=== PATIENT | female | born 1950 | race Caucasian/White ===

== ENCOUNTER 2016-08-29 11:29 | Observation (INO) | payer BC ==
--- NOTE | ~2016-08-29 | DS ---
Discharge Summary [id number] [place]. [address] NAME: DWAYNE MARIN : 54 STATUS : DIS Kwame PAT#: [id number] AGE: 66 ADM/REG DATE : 08/29/16 MR#: [id number] REPORT SERV DATE: 08/31/16 DICTATED BY: LALITHA ADAMS DATE: 08/30/16 REPORT STATUS : Draft TRANSCRIBED BY: MODL DATE: 08/30/16 ADMISSION DATE: 08/29/2016 DISCHARGE DATE: 08/30/2016 PRINCIPAL DIAGNOSIS: Chest pain due to anxiety state with major depression. SECONDARY DIAGNOSES: Urinary tract infection, type 2 diabetes. HISTORY OF PRESENT ILLNESS: Please see Dr. Solorzano's dictation on 08/29/2016. HOSPITAL COURSE: The patient was admitted with chest pain and shortness of breath. The patient had a negative CTA, negative stress test, negative liver ultrasound for mildly elevated LFTs, attributable probably to the fatty liver. The patient continued to have chest pain and shortness of breath. However, she was found to be very anxious, found to have history of major depression with depressed affect. She had been prescribed Cymbalta 30 b.i.d., but she was not taking that b.i.d. once if at all. She was instructed to go ahead and take this b.i.d. Francisca was given p.r.n. with instructions to stay off work for the next two weeks, as it sounds like job-related stress was causing her a great deal of difficulty. She was directed to follow up with [facility] and with psychiatrist that she actually already had an appointment with. DICTATED BY: Reny Montiel/JOSE Lalitha Adams M.D. / [id number] CC: Lalitha Adams M.D. [facility]
--- NOTE | ~2016-08-29 | HP ---
History And Physical [id number] [facility] [place]. [address] NAME: DWAYNE MARIN : 54 STATUS : ADM Kwame PAT#: [id number] AGE: 66 ADM/REG DATE : 08/29/16 MR#: [id number] REPORT SERV DATE: 08/29/16 DICTATED BY: MARGARITA SOLORZANO DATE: 08/29/16 REPORT STATUS : Draft TRANSCRIBED BY: JOSE DATE: 08/29/16 DATE OF ADMISSION: 08/29/2016 CHIEF COMPLAINT: Chest pain, dyspnea on exertion, subjective fevers and chills for a few days. HISTORY OF PRESENT ILLNESS: This is a very pleasant 66-year-old female. She has a history of diabetes type 2, uncontrolled, on oral medication. She has a history of vertigo, history of depression with anxiety and migraine headaches, presenting today to [facility] with complaints started a few days ago with some chest pain, but mostly generalized pain as well as severe weakness and dyspnea on exertion. The patient's symptoms did not improve. She still experienced this pressure-like chest pain, but also sometimes stabbing pain that has been radiating to the left side and sometimes jaw pains unrelated with the chest pain and severe weakness. She said she was so weak that she lay most of the time in the bed. She did not have any PND or orthopnea. She has not had any palpitation. She has not had any abdominal pain. She has not had any nausea or vomiting. No hematemesis, melena, or hematochezia. No recent sick contacts. No recent hospitalization. Due to the persistence of the symptoms, she has been presenting today to [facility] Emergency Room. After initial evaluation, Hospitalist Service has been asked for admission, further evaluation, and treatment. PAST MEDICAL HISTORY: Significant for diabetes type 2, noninsulin dependent; migraine headaches; history of depression and anxiety; history of GERD with hiatal hernia. PAST SURGICAL HISTORY: Includes cholecystectomy as well as hysterectomy. SOCIAL HISTORY: She denies tobacco, alcohol, or IV drugs. She does not have any drug allergies. MEDICATIONS: At home include Excedrin, Cymbalta, Amaryl, Atarax, and Antivert. FAMILY HISTORY: Significant for heart disease, diabetes, and cancer. REVIEW OF SYSTEMS: A 14-point review of systems has been obtained and pertinent positive has been listed into the history of present illness. Otherwise, negative except those underlying above. PHYSICAL EXAMINATION: VITAL SIGNS: The patient currently is afebrile. Blood pressure 155/85, heart rate 90, respiratory rate 18, saturating 90% on room air. GENERAL: She is a very pleasant, somewhat anxious female, in nonacute distress. She is alert and oriented x3. She is nonfocal. She follows all her commands appropriately. HEENT: Show pupils equal, round, reactive to light. Extraocular movements intact. No JVD. No lymphadenopathy. No thyromegaly appreciated. CHEST: Eval shows bilateral air entry. Clear anteroposterior. No wheezes, crackles, or rhonchi appreciated. History And Physical [address] [address] NAME: DWAYNE MARIN : 54 STATUS : ADM Kwame PAT#: [id number] AGE: 66 ADM/REG DATE : 08/29/16 MR#: [id number] REPORT SERV DATE: 08/29/16 DICTATED BY: MARGARITA SOLORZANO DATE: 08/29/16 REPORT STATUS : Draft TRANSCRIBED BY: JOSE DATE: 08/29/16 CARDIOVASCULAR: She has regular rate and rhythm. S1, S2 positive. No S3, no S4. No murmurs, rubs, or gallops appreciated. ABDOMEN: Soft with positive bowel sounds. Nontender. No guarding. No rebound. EXTREMITIES: No clubbing, cyanosis, or edema. NEUROLOGIC: The patient is alert and oriented x3. She is nonfocal. She follows all her commands appropriately. LABORATORY DATA: Labs from today include sodium 135, potassium 3.8, chloride 108, CO2 of 26, BUN 10, creatinine 0.77, glucose 142. Her total bilirubin is 0.5, alkaline phosphatase 88, ALT 73, AST 71. Troponin is less than 0.02. Her lactate is 1.1. Her white count is 4.7, hemoglobin 12.8 hematocrit 40.0, platelets 242. Her INR is 1.2. Her UA has been positive for large leukocyte esterase, 9 cells, and rare bacteria. Her blood cultures currently are pending. Her urine cultures are pending. There is EKG which shows normal sinus rhythm, and on chest x-ray, portable, performed in the emergency room showed that the patient has a large hiatal hernia. No acute process, otherwise identified radiographically. ASSESSMENT AND PLAN: This is a very pleasant 66-year-old female with: 1. Chest pain and dyspnea on exertion. 2. Urinary tract infection. 3. Diabetes type 2, noninsulin dependent, uncontrolled. 4. History of gastroesophageal reflux disease and hiatal hernia. 5. Depression and anxiety. The patient is going to be admitted for observation. We are going to place her on oxygen, aspirin, low doses of beta karli, rule her for myocardial infarction by serial cardiac enzymes, serial EKG, perform CTA of the chest, as well as 2D echo, stress test in the morning. Provide supportive treatment as well. 6. Urinary tract infection. Check urine cultures, blood cultures. Place the patient on Rocephin and IV hydration. 7. Hypertension. Start the patient on beta blockers as well as provide p.r.n. hydralazine as needed. 8. Diabetes type 2, noninsulin dependent. Continue her home medication. Accu-Cheks before meals and at bedtime and sliding scale insulin subcutaneously level 2. 9. History of gastroesophageal reflux disease with hiatal hernia. Place her on Protonix oral. 10.Mild elevation in liver function tests. We are going to check a liver ultrasound as well as a hepatitis panel and follow the labs in the morning. 11.History of depression with anxiety. We will continue her home medications. We are going to provide reasonable pain and nausea control as well as gastrointestinal and deep venous thrombosis prophylaxis. That has been discussed extensively with the patient. All the questions have been answered in full. Further workup and recommendation pending above. It is worthwhile to note that the patient is going to be followed up by Hospitalist Service. History And Physical [address] [address] NAME: DWAYNE MARIN : 54 STATUS : ADM Kwame PAT#: [id number] AGE: 66 ADM/REG DATE : 08/29/16 MR#: [id number] REPORT SERV DATE: 08/29/16 DICTATED BY: MARGARITA SOLORZANO DATE: 08/29/16 REPORT STATUS : Draft TRANSCRIBED BY: JOSE DATE: 08/29/16 CF/JOSE Margarita Solorzaon M.D. / [id number] CC: Margarita Solorzano M.D.
[~2016-08-29 11:29] MED LIST: ASA5GR PO; ATV.5 PO; DSS PO; EXCEDRIN EXTRA1 EACH PO; EXCEDRIN MIGRA1 EAC1 PO; EXCEDRIN TENSI1 EACH PO; GLUCOTROL5 PO; GLUCPH PO; GOLD BOND EX; ZANTAC150 MG PO; ZESTRIL10 MG PO
[2016-08-29 12:49] LABS: BASOPHILS 0.4 %; BASOPHILS ABSOLUTE 0.02 10/3/uL (0.0-0.16); EOSINOPHILS 1.3 %; EOSINOPHILS ABSOLUTE 0.06 10/3/uL (0.0-0.53); ER CBC TAT 0 Hrs 10 Mins; HEMOGLOBIN 12.8 g/dL (12.0-16.0); IMMATURE GRANULOCYTES 0.4 %; IMMATURE GRANULOCYTES ABSOLUTE 0.02 10/3/uL (0.0-0.11); LYMPHOCYTES 28.5 %; LYMPHOCYTES ABSOLUTE 1.33 10/3/uL (0.67-4.30); MEAN PLATELET VOLUME 9.7 fL (9.2-13.0); MONOCYTES 7.3 %; MONOCYTES ABSOLUTE 0.34 10/3/uL (0.21-1.20); NEUTROPHILS 62.1 %; PLATELET COUNT 242 10/3/uL (150-400); WHITE BLOOD CELLS 4.7 10/3/uL (4.5-10.5)
[2016-08-29 12:50] LABS: MANUAL DIFF NO %; MEAN CORPUSCULAR HEMOGLOB 24.5 pg (26.0-34.0); MEAN CORPUSCULAR VOLUME 76.5 fL (80-100); RBC DISTRIBUTION WIDTH 17.3 % (12.0-16.0); RED CELL COUNT 5.23 10/6/uL (4.0-5.6)
[2016-08-29 12:56] LABS: INTERNATIONAL NORMAL RATI 1.2 UNITS (-); PARTIAL THROMBO TIME 32.8 SEC (22.5-37.2); PROTIME (NOT ORD) 15.2 SEC (12.0-14.5)
[2016-08-29 13:01] LABS: ASCORBIC ACID (UR NOT ORDER) NEG (NEG); BILIRUBIN, URINE NEGATIVE (NEG); ER URINALYSIS TAT 0 Hrs 13 Mins; KETONE, URINE NEGATIVE (NEG); LEUKOCYTE ESTERASE(NOT OR LARGE (NEG); NITRITE (URINE) NEG (NEG); WBC (NOT ORDERED) (RFLEX) 9 (0-5)
[2016-08-29 13:05] LABS: ALBUMIN 3.8 G/DL (3.5-5.0); ALKALINE PHOSPHATASE 88 U/L (45-117); BUN (BLOOD UREA NITROGEN) 10 MG/DL (6-23); CHEST PAIN PROFILE TAT 0 Hrs 26 Mins; CHLORIDE, SERUM 108 MMOL/L (96-112); CO2 (CARBON DIOXIDE) 26 MMOL/L (24-34); CREATININE 0.77 MG/DL (0.55-1.02); DIRECT BILIRUBIN < 0.1 MG/DL (0.0-0.4); GFR AFRICAN AMERICAN 95 ML/MIN (>=60); GFR NON AFRICAN AMERICAN 82 ML/MIN (>=60); GLUCOSE, SERUM 142 MG/DL (60-99); INDIRECT BILIRUBIN(NOT ORDER) 0.4 MG/DL (0.1-0.9); POTASSIUM, SERUM 3.8 MMOL/L (3.5-5.3); SGOT(AST) 71 U/L (5-40); SGPT(ALT) 73 U/L (5-65); SODIUM, SERUM 135 MMOL/L (135-148); TOTAL BILIRUBIN 0.5 MG/DL (0-1.2); TROPONIN I <0.02 NG/ML (<0.05)
[2016-08-29 13:43] LABS: PROCALCITONIN < 0.05 ng/mL (<0.5)
[2016-08-29] MEDS ORDERED: MCZ25 PO (14:30)
[2016-08-29] MEDS ORDERED: CYMBALTA30 PO (14:32)
[2016-08-29] MEDS ORDERED: AT25 PO (14:32)
[2016-08-29] MEDS ORDERED: AMARYL2 PO (14:33)
[2016-08-29] MEDS ORDERED: EXCEDRIN TENSI1 EACH PO (14:34)
[2016-08-29 18:54] LABS: FREE T4 1.14 NG/DL (0.76-1.46); PHOSPHORUS, SERUM 3.3 MG/DL (2.5-4.5)
[2016-08-29 18:56] LABS: ACETAMINOPHEN LEVEL (TYLENOL) < 2.0 MCG/ML (10.0-20.0); ALCOHOL < 10 MG/DL (0); SALICYLATE < 1.7 MG/DL (-)
[2016-08-29 19:23] LABS: CK-MB 0.6 NG/ML; CPK 40 U/L (0-200)
[2016-08-29 22:21] LABS: CPK 33 U/L (0-200); TROPONIN I <0.02 NG/ML (<0.05)
[2016-08-29 22:22] LABS: CK-MB 0.6 NG/ML
[2016-08-29 22:29] LABS: B NATRIURETIC PEPTIDE (BNP) 5.4 PG/ML (< 100.0)
[2016-08-30 05:27] LABS: BASOPHILS 0.5 %; BASOPHILS ABSOLUTE 0.02 10/3/uL (0.0-0.16); EOSINOPHILS 2.3 %; HEMATOCRIT 37.1 % (36.0-48.0); HEMOGLOBIN 11.6 g/dL (12.0-16.0); LYMPHOCYTES 39.7 %; LYMPHOCYTES ABSOLUTE 1.72 10/3/uL (0.67-4.30); MEAN CORPUS HGB CONC 31.3 g/dL (32.0-36.0); MEAN CORPUSCULAR HEMOGLOB 24.2 pg (26.0-34.0); MEAN CORPUSCULAR VOLUME 77.3 fL (80-100); MEAN PLATELET VOLUME 9.6 fL (9.2-13.0); MONOCYTES 5.8 %; MONOCYTES ABSOLUTE 0.25 10/3/uL (0.21-1.20); NEUTROPHILS 51.7 %; NEUTROPHILS ABSOLUTE 2.24 10/3/uL (2.02-8.40); PLATELET COUNT 229 10/3/uL (150-400); RBC DISTRIBUTION WIDTH 17.4 % (12.0-16.0); WHITE BLOOD CELLS 4.3 10/3/uL (4.5-10.5)
[2016-08-30 05:29] LABS: MANUAL DIFF NO %
[2016-08-30 05:44] LABS: A/G RATIO 0.9 (0.7-1.9); ALBUMIN 3.2 G/DL (3.5-5.0); ALKALINE PHOSPHATASE 75 U/L (45-117); BUN (BLOOD UREA NITROGEN) 13 MG/DL (6-23); CALCIUM, SERUM 8.3 MG/DL (8.5-10.4); CHLORIDE, SERUM 108 MMOL/L (96-112); CK-MB 0.5 NG/ML; CO2 (CARBON DIOXIDE) 27 MMOL/L (24-34); CPK 38 U/L (0-200); CREATININE 0.73 MG/DL (0.55-1.02); GFR AFRICAN AMERICAN 101 ML/MIN (>=60); GFR NON AFRICAN AMERICAN 87 ML/MIN (>=60); GLOBULIN 3.7 G/DL (2.5-4.1); GLUCOSE, SERUM 150 MG/DL (60-99); POTASSIUM, SERUM 4.2 MMOL/L (3.5-5.3); SGOT(AST) 49 U/L (5-40); SGPT(ALT) 59 U/L (5-65); SODIUM, SERUM 138 MMOL/L (135-148); TOTAL BILIRUBIN 0.3 MG/DL (0-1.2); TOTAL PROTEIN 6.9 G/DL (6.0-8.5); TROPONIN I <0.02 NG/ML (<0.05)
[2016-08-30 09:29] LABS: HEPATITIS B SURFACE ANTIGEN NON-REACTIVE (NON-REACT)
[2016-08-30 09:41] LABS: HEPATITIS B CORE AB IGM NON-REACTIVE (NON-REAC); HEPATITIS C ANTIBODY NON-REACTIVE (NON-REACT)
[2016-08-30 09:43] LABS: HEP A ANTIBODY IGM NON-REACTIVE (NON-REACT)
[2016-08-30] MEDS ORDERED: CYMBALTA30 PO (16:16)
[2016-08-30] MEDS ORDERED: KLONO5 PO (16:17)
[2016-08-30] MEDS ORDERED: BACDS PO (16:18)
== END 2016-08-30 17:55 | disposition home or self-care (01) ==
LOC: ER 11:29 → CDU1 15:57 → CDU2 16:28 → CDU1 22:00
PROVIDERS: Emergency Medicine; Internal Medicine
DX: R07.9 Chest pain, unspecified (principal); F32.9 Major depressive disorder, single episode, unspecified; N39.0 Urinary tract infection, site not specified; E11.9 Type 2 diabetes mellitus without complications; G43.909 Migraine, unspecified, not intractable, without status migrainosus; F41.9 Anxiety disorder, unspecified; K21.9 Gastro-esophageal reflux disease without esophagitis; Z98.890 Other specified postprocedural states
CPT/HCPCS: 71010; 71020; 71275; 76705; 78452; 80048; 80053; 80074; 80076; 80307; 81001; 82140; 82550; 82553; 82962; 83605; 83615; 83735; 83880; 84100; 84145; 84439; 84443; 84484; 85025; 85610; 85652; 85730; 87040; 87086; 93005; 93017; 96372; 96374; 96375; 96376; 99285; A9270-GY; A9502; G0378; J0153; J2405; Q9967